=== PATIENT | female | born 1965 | race Caucasian/White ===

== ENCOUNTER 2019-08-25 07:34 | Outpatient (CLI) | payer OTHER, SELFPAY ==
--- NOTE | ~2019-08-25 | MM_ITS ---
EXAMINATION: MM screening tom BI w delon HISTORY: Screening mammogram TECHNIQUE: Craniocaudal and mediolateral oblique 3-D tomosynthesis images were obtained and synthetic 2-D images were generated. CAD analysis was submitted and interpreted. COMPARISON: Comparison to multiple prior studies sequentially, with oldest reviewed study dated 05/31. BREAST PARENCHYMAL COMPOSITION: There are scattered areas of fibroglandular density. FINDINGS: There is no evidence of suspicious mass, calcification, or architectural distortion to sugg est malignancy in either breast. There has been no suspicious interval change. IMPRESSION: 1. No mammographic evidence of malignancy. 2. Recommend routine screening mammography in one year. BI-RADS Category 1: Negative Reviewed, dictated and finalized at location A. RPRISE APPLICATION ADMINISTRATOR
== END 2019-08-25 07:35 | disposition home or self-care (01) ==
LOC: ANHIMG 07:37
PROVIDERS: PCP Family Medicine; Visit Provider Obstetrics & Gynecology
DX: Z12.31 Encounter for screening mammogram for malignant neoplasm of breast (principal)
CPT/HCPCS: 77063; 77067

== ENCOUNTER 2020-09-01 17:42 | Outpatient (CLI) | payer OTHER, SELFPAY ==
--- NOTE | ~2020-09-01 | MM_ITS ---
EXAMINATION: MM screening [facility] BI w delon HISTORY: Screening TECHNIQUE: Craniocaudal and mediolateral oblique 3-D tomosynthesis images were obtained and synthetic 2-D images were generated. CAD analysis was submitted and interpreted. COMPARISON: Comparison to multiple prior studies sequentially, with oldest reviewed study dated 05/31. BREAST PARENCHYMAL COMPOSITION: There are scattered areas of fibroglandular density. FINDINGS: There is no evidence of suspicious mass, calcification, or architectural distortion to sugg est malignancy in either breast. There has been no suspicious interval change. IMPRESSION: 1. No mammographic evidence of malignancy. 2. Recommend routine screening mammography in one year. BI-RADS Category 1: Negative Reviewed, dictated and finalized at location A. CLE SAFETY INSPECTOR
== END 2020-09-01 17:43 | disposition home or self-care (01) ==
LOC: ANHIMG 17:45
PROVIDERS: Family Provider Hospitalist; PCP Family Medicine; Visit Provider Obstetrics & Gynecology
DX: Z12.31 Encounter for screening mammogram for malignant neoplasm of breast (principal)
CPT/HCPCS: 77063; 77067

== ENCOUNTER 2020-12-24 12:18 | Emergency (ER) | payer OTHER, SELFPAY ==
--- NOTE | ~2020-12-24 | XR_ITS ---
EXAMINATION: XR chest 2V 12/24/2020 12:58 INDICATION: Generalized chest burning. Hypertension. PROCEDURE: PA and lateral views of the chest COMPARISON: 02/06/2007 FINDINGS: No focal pneumonia. Left basilar atelectasis. The cardiomediastinal silhouette is within no rmal limits. There are no pleural effusions. There is no pneumothorax suspected. There is a calcif ied granuloma of the left midlung zone. IMPRESSION: 1: NO ACUTE CARDIOPULMONARY DISEASE. Reviewed, dictated and finalized at location A.
[2020-12-24 12:40] VITALS: BP 155/80; PULSE 81; RESP 18; TEMP 37.7; O2SAT 100
--- NOTE | 2020-12-24 12:40 | ECG_ITS ---
Measurements Intervals [place] Rate: 75 P: 43 OK: 154 QRS: 64 QRSD: 78 T: 28 QT: 363 QTc: 406 Interpretive Statements SINUS RHYTHM LOW QRS VOLTAGE IN PRECORDIAL LEADS BORDERLINE ST-T WAVE ABNORMALITY- ANT/INF LEADS BASELINE ARTIFACT- I, II, III, V4 BORDERLINE ECG Electronically Signed On 12-24-2020 19:29:28 CDT by Serafin Lucas D.O.
[2020-12-24 12:59] LABS: Basophils Absolute Auto 0.1 K/mm3 (0.0-0.1); Basophils Percent Auto 0.4 % (0.2-1.2); Eosinophils Absolute Auto 0.1 K/mm3 (0-0.3); Eosinophils Percent Auto 0.4 % (0-4.4); Hematocrit 43.5 % (37.0-47.0); Hemoglobin 13.8 g/dL (12.0-15.0); Immature Granulocyte Absolute 0.04 K/mm3 (0.00-0.031); Immature Granulocyte Percent A 0.3 % (0-0.5); Lymphocytes Absolute Auto 1.07 K/mm3 (0.9-3.2); Lymphocytes Percent Auto 8.1 % (18.3-44.2); Mean Corpuscular HGB Conc 31.7 g/dl (32-36); Mean Corpuscular Hemoglobin 27.7 pg (26-34); Mean Corpuscular Volume 87.2 fl (80-100); Mean Platelet Volume 11.1 fl (7.4-10.4); Monocytes Percent Auto 7.7 % (2.6-8.5); Neutrophils Absolute Auto 10.9 K/mm3 (1.3-6.7); Neutrophils Percent Auto 83.1 % (45.5-73.1); Platelet Count Result 293 k/mm3 (150-375); Red Blood Count 4.99 M/mm3 (4.2-5.4); Red Cell Distribution Width 14.5 % (11.5-14.5); White Blood Count 13.2 K/mm3 (4.5-10.0)
[2020-12-24 13:09] LABS: Anion Gap 7 mmol/L (8-16); Blood Urea Nitrogen 18 mg/dL (7-17); Calcium 10.1 mg/dL (8.4-10.2); Carbon Dioxide 33 mmol/L (22-30); Chloride 102 mmol/L (98-107); Estimated CRCL calculation 87 ml/min; Estimated Glomerular Filt Rate > 60; Glucose 118 mg/dL (65-105); Potassium 4.1 mmol/L (3.4-5.0); Sodium 142 mmol/L (137-145)
[2020-12-24 14:00] VITALS: BP 130/70; PULSE 67; RESP 18; O2SAT 100
--- NOTE | 2020-12-24 14:37 | ED.SOB ---
HPI - SOB/Dyspnea General Chief Complaint: Shortness of Breath/Dyspnea Stated Complaint: sob, sore throat, abnormal ekg Time Seen by Provider: 12/24/20 14:22 Source: patient Mode of arrival: ambulatory Limitations: no limitations History of Present Illness HPI Narrative: This is a 55-year-old female that presents to the emergency department for throat discomfort since this morning. Reports she woke up at 5 AM and felt like her throat was burning. Reports it is somewhat improved since onset, but has been constant in nature. Does report she drinks margaritas last night and has history of reflux. Also reports some shortness of breath due to the burning in her throat. Denies fever, chest pain, or edema. Related Data Allergies Allergy/AdvReac Type Severity Reaction Status Date / Time No Known Allergies Allergy Unknown Verified 11/25/15 10:26 Review of Systems Review of Systems: Narrative: CONSTITUTIONAL: Denies fever ENT: Reports sore throat CARDIOVASCULAR: Denies chest pain, or edema. RESPIRATORY: Reports dyspnea. Denies cough GASTROINTESTINAL: Reports nausea. Denies nausea All systems reviewed & are unremarkable except as noted in HPI and below PMFSH Past Medical History Medical History (Updated 12/24/20 @ 18:16 by Angela Blanchard PA-C) History of gastroesophageal reflux (GERD) History of hypertension Surgical History Surgical History (Updated 12/24/20 @ 14:39 by Angela Blanchard PA-C) History of cholecystectomy History of tonsillectomy Exam Narrative: Exam Narrative: GENERAL: Well-appearing, obese, and in no acute distress. HEAD: Normocephalic, atraumatic. EYES: EOMI. ENT: Nares clear, no rhinorrhea or epistaxis. Mucous membranes moist. Oropharynx without tonsillar hypertrophy exudate or other lesions. Bilateral TMs pearly mehta non-bulging NECK: Supple. No adenopathy or masses. No carotid bruits or JVD CHEST: Clear to auscultation. No respiratory distress. No wheezes rales or rhonchi HEART: Regular rate and rhythm. No murmur heard. Normal peripheral pulses. ABDOMEN: Soft, nontender, nondistended, normal active bowel sounds. EXTREMITIES: Normal range of motion. No edema. SKIN: Warm, dry, no rash. NEURO: No focal deficits. Alert and oriented x3. PSYCH: Normal mood and affect Course Vital Signs Vital signs: Vital Signs Temperature 99.8 F H 12/24/20 12:40 Pulse Rate 81 12/24/20 12:40 Respiratory Rate 18 12/24/20 12:40 Blood Pressure 155/80 H 12/24/20 12:40 Pulse Oximetry 100 12/24/20 12:40 Temperature 98.0 F 12/24/20 17:49 Pulse Rate 65 12/24/20 17:39 Respiratory Rate 18 12/24/20 17:39 Blood Pressure 133/77 12/24/20 17:39 Pulse Oximetry 100 12/24/20 17:39 MDM - SOB/Dyspnea MDM Narrative Medical decision making narrative: Patient presents to the emergency department for burning pain in her throat noted since this morning. Was also reporting some shortness of breath that had resolved. She is afebrile and nontoxic-appearing. Her vitals are stable. CBC does show leukocytosis to 13.2. Metabolic panel without concerning findings. EKG does show some T wave inversions in V3 and V4. Her baseline and 3-hour troponin are negative. Patient does report she has had a stress test in the last 5 years that she reports was negative. She reports improvement in her pain with Protonix. Chest x-ray without acute findings. Patient instructed to continue her omeprazole and avoid NSAIDs. Spoke with her primary about work-up will follow-up in clinic. Patient was offered admission for further work-up, would like to go home with further outpatient follow-up. She is stable and felt appropriate for further outpatient evaluation. She was given warnings to return to the ER Lab Data Attestation: I reviewed the patient's lab results. Result diagrams: 12/24/20 12:53 12/24/20 12:53 Labs: Lab Results 12/24/20 12/24/20 12/24/20 Range/Units 12:53 12:53 12:53 W
[2020-12-24] MEDS: FAMOTIDINE 20 MG/2 ML VIAL IV PUSH (14:52)
[2020-12-24] MEDS: ONDANSETRON INJ 4 MG/2 ML VIAL IV PUSH (14:55)
[2020-12-24] MEDS: SODIUM CHLORIDE 0.9% IV 500 ML 999 ML IV CONT (14:57)
[2020-12-24 15:01] LABS: Troponin I < 0.012 ng/mL (0.000-0.034)
[2020-12-24] MEDS: PANTOPRAZOLE SODIUM IV 40 MG VIAL IV PUSH (16:30)
[2020-12-24 16:48] LABS: Troponin I < 0.012 ng/mL (0.000-0.034)
[2020-12-24 17:39] VITALS: BP 133/77; PULSE 65; RESP 18; O2SAT 100
[2020-12-24 17:49] VITALS: TEMP 36.7
== END 2020-12-24 18:44 | disposition home or self-care (01) ==
PROVIDERS: Physician Assistant; Emergency Provider Emergency Medicine; PCP Family Medicine
DX: K21.9 Gastro-esophageal reflux disease without esophagitis (principal); I10 Essential (primary) hypertension
CPT/HCPCS: 36415; 71046; 80048; 84484; 85025; 87081; 87880; 93005; 96361; 96374; 96375; 99284; C9113; J0131; J2405; J7030; J7040

== ENCOUNTER 2021-01-05 00:54 | Day surgery (SDC) | payer OTHER, SELFPAY ==
[2020-12-30 14:54] VITALS: BMI 41.4
[2021-01-05 06:47] VITALS: BP 132/72; PULSE 69; RESP 18; TEMP 35.9; O2SAT 98
[2021-01-05] MEDS: LACTATED RINGERS 1,000 ML 150 ML IV CONT (06:49)
--- NOTE | 2021-01-05 07:25 | WPDANESEPPF ---
Anes - Initial Pre Proc Eval Procedure: Operation Date: 01/05/21 08:00 Proposed Procedures p Esophagogastroduodenoscopy - Mart Mayes MD Date/Time: 01/05/21 07:25 Surgeon: Mart Mayes MD Pre Op Diagnosis: atypical chest pain Patient Data Age: 55 Gender: F Height: 1.65 m Weight: 114.3 kg Last Vital Signs Temp 35.9 C L 01/05/21 06:47 Pulse 69 01/05/21 06:47 Resp 18 01/05/21 06:47 BP 132/72 01/05/21 06:47 Pulse Ox 98 01/05/21 06:47 Allergies Allergy/AdvReac Type Severity Reaction Status Date / Time No Known Allergies Allergy Unknown Verified 01/05/21 06:45 Home Medications Medication Instructions Recorded Confirmed Type famotidine 20 mg tablet 20 mg PO HS 12/28/20 01/05/21 History omeprazole 20 mg tablet,delayed 20 mg PO DAILY 12/28/20 01/05/21 History release triamterene 37.5 1.5 cap PO DAILY 12/28/20 01/05/21 History mg-hydrochlorothiazide 25 mg capsule Daily Multivitamin 1 tab-cap PO DAILY 12/30/20 01/05/21 History atenolol 50 mg PO BID 12/30/20 01/05/21 History ferrous sulfate [Slow Fe] 45 mg PO DAILY 12/30/20 01/05/21 History Patient hx anesthesia problems: none Family hx anesthesia problems: none PMFSH Past Medical History Medical History (Updated 01/05/21 @ 07:25 by Rex Weiss MD) History of gastroesophageal reflux (GERD) History of hypertension Morbid obesity Surgical History Surgical History History of cholecystectomy History of tonsillectomy Social History Social History Smoking status: Never smoker Alcohol intake: current Substance use: never Substance use type: does not use Living arrangements: with family Spiritual care concerns: No Anes - Eval Final PreProcedure Day of Procedure 01/05/21 07:25 Patient weight: morbidly obese Heart: regular rate and rhythm Lungs: clear to auscultation Airway: Mallampati scale class II Neurological: alert and oriented Last oral intake: >/= 8 hours ASA classification: III Emergent: no Anesthetic plan: proceed Anesthesia type and monitoring: general GIVS and standard monitoring Informed Consent: The patient's anesthetic plan and its attendant risks and benefits were discussed with the patient/family/POA. Questions were solicited and answers provided to the satisfaction of the patient/family/POA.
--- NOTE | 2021-01-05 07:58 | WPDHPUPDATE1 ---
History and Physical Update Update Date/Time: 01/05/21 07:58 History and Physical has been reviewed, including an updated exam of the patient. There are NO changes in the patient's condition. Risks, benefits, and alternatives have been discussed and questions answered. Patient agrees to proceed with procedure.
[2021-01-05] MEDS: BENZOCAINE (*SP) 60 ML SPRAY CAN (HURRICAINE) 1 SPRAY MUCOUS MEM (08:05)
[2021-01-05 08:18] VITALS: BP 111/57; PULSE 63; RESP 23; O2SAT 99
[2021-01-05 08:28] VITALS: BP 124/76; PULSE 62; RESP 20; O2SAT 97
[2021-01-05 08:38] VITALS: BP 120/72; PULSE 57; RESP 18; O2SAT 100
== END 2021-01-05 09:19 | disposition home or self-care (01) ==
PROVIDERS: PCP Family Medicine; Visit Provider Internal Medicine Gastroenterology
PROC: 0DJ08ZZ Inspection of Upper Intestinal Tract, Via Natural or Artificial Opening Endoscopic (ICD-10-PCS; CPT 43235; principal; 2021-01-05 08:00)
DX: K21.9 Gastro-esophageal reflux disease without esophagitis (principal); I10 Essential (primary) hypertension; E66.01 Morbid (severe) obesity due to excess calories; Z68.41 Body mass index [BMI] 40.0-44.9, adult
CPT/HCPCS: 43239; 87081; J2704; J7120

== ENCOUNTER 2021-06-20 08:43 | Outpatient (CLI) | payer OTHER, SELFPAY ==
[2021-06-20 08:53] VITALS: PULSE 68; O2SAT 97
[2021-06-20 09:00] VITALS: PULSE 96; O2SAT 95
--- NOTE | 2021-06-20 09:05 | HOMEO2EVAL ---
Evaluation was performed at [facility] Home Oxygen Evaluation RC: Home Oxygen (O2) Evaluation Start: 06/20/21 09:01 Freq: Status: Active Protocol: RPE Activity Type Activity Date Activity User E-Sign Co-Sign Detail Recorded Client Recorded Date Recorded By Document 06/20/21 08:53 SJKayce [id number] 06/20/21 09:04 SJB Document 06/20/21 09:00 SJB [id number] 06/20/21 09:04 SJB 06/20/21 06/20/21 08:53 09:00 Home O2 Evaluation Test Phase Resting Exercise Oxygen Delivery Room Air Room Air Pulse Oximetry (90-100 %) 97 95 Pulse Rate (60-100 beats/min) 68 Activity Tolerance Excellent Rating of Perceived Dyspnea (PD) +1 Mild, Noticeable to the Participant but Not to an Observer Rate of Perceived Exertion (PE) 11 Fairly light Ambulation Distance (feet) 1,200 Home Oxygen Evaluation Comments WILL BEGIN WALK PT WALKED NOW. APPROX 1200 FT UNASSISTED ON R /A. TOLERATED VERY WELL. SP02S REMAINED 94% AND ABOVE, TALKING THROUGH THE TEST. Treatment Charges O2 Evaluation - Outpatient
--- NOTE | 2021-06-20 09:18 | HOMEO2EVAL ---
Evaluation was performed at [facility] [place] Home Oxygen Evaluation RC: Home Oxygen (O2) Evaluation Start: 06/20/21 09:01 Freq: Status: Active Protocol: RPE Activity Type Activity Date Activity User E-Sign Co-Sign Detail Recorded Client Recorded Date Recorded By Document 06/20/21 08:53 SJKayce [id number] 06/20/21 09:04 SJB Document 06/20/21 09:00 SJB [id number] 06/20/21 09:04 SJB 06/20/21 06/20/21 08:53 09:00 Home O2 Evaluation Test Phase Resting Exercise Oxygen Delivery Room Air Room Air Pulse Oximetry (90-100 %) 97 95 Pulse Rate (60-100 beats/min) 68 96 Activity Tolerance Excellent Rating of Perceived Dyspnea (PD) +1 Mild, Noticeable to the Participant but Not to an Observer Rate of Perceived Exertion (PE) 11 Fairly light Ambulation Distance (feet) 1,200 Home Oxygen Evaluation Comments WILL BEGIN WALK PT WALKED NOW. APPROX 1200 FT UNASSISTED ON R /A. TOLERATED VERY WELL. SP02S REMAINED 94% AND ABOVE, TALKING THROUGH THE TEST. Treatment Charges O2 Evaluation - Outpatient
--- NOTE | 2021-06-22 11:00 | WPDPFTINT ---
PFT Procedure Performed PFT Procedure Performed Spirometry with Pre/Post Bronchodilator Plethysmography (Lung Vol) Diffusing Cap (DLCO) Flow Vol Loop PFT Interpretation DOS: 06/20/2021 REQUESTING: Dr Powell REASON FOR TESTING: Shortness of breath PULMONARY FUNCTION TESTS Results are reliable and reproducible. Spirometry: FEV1 before bronchodilator is 105% predicted, 2.65 L. FVC is 107%. THe FEV1/FVC ratio is 96%, normal. There is no improvement after bronchodilator. Lung volumes: Total lung capacity is 94% predicted, normal. Residual volume is 78% normal. RV/TLC is not elevated. There is no hyperinflation or air trapping. Airway resistance 125% upper limit of normal. Diffusion: DLCO 69% predicted, mildly decreased. Flow volume loop: Normal IMPRESSION: This pulmonary function study shows normal spirometry, normal lung volumes with minimal decrease in diffusion which is a nonspecific finding. Oumou Powell MD
--- NOTE | 2021-06-22 11:05 | WPDSIXMINUTE ---
Six Minute Walk Procedure Procedure Performed Pulmonary Stress Test (6 min walk) Six Minute Walk Six Minute Walk: DOS: 06/20/2021 REQUESTING: Dr Powell REASON FOR TESTING: Shortness of breath SIX MINUTE WALK This study was conducted per ATS guidelines. Initial saturation was 97% and the pulse was 68. The patient walked per protocol while breathing room air, completed a total of 1200 ft/304 m without requirement for supplemental oxygen. The saturation at the end of the test was 94%. She had mild shortness of breath. IMPRESSION: This is a normal 6 minute walk study without need for supplemental oxygen. Distance walked is normal for age.
== END 2021-06-20 08:44 | disposition home or self-care (01) ==
LOC: CHSCARD 08:44
PROVIDERS: PCP Family Medicine; Visit Provider Internal Medicine Critical Care Medicine
DX: R06.02 Shortness of breath (principal)
CPT/HCPCS: 94060; 94618; 94726; 94729

== ENCOUNTER 2021-09-26 17:44 | Outpatient (CLI) | payer OTHER, SELFPAY ==
--- NOTE | ~2021-09-26 | MM_ITS ---
EXAMINATION: MM screening [facility] BI w delon HISTORY: Screening mammogram TECHNIQUE: Craniocaudal and mediolateral oblique 3-D tomosynthesis images were obtained and synthetic 2-D images were generated. CAD analysis was submitted and interpreted. COMPARISON: 09/01/2020, 08/25/2019, 08/19/2018, 07/30/2018 BREAST PARENCHYMAL COMPOSITION: There are scattered areas of fibroglandular density. FINDINGS: A stable mass in the upper outer quadrant of the right breast is considered benign given th e lack of interval change. There is no suspicious mass, calcification, or architectural distortion to suggest malignancy in either breast. There has been no suspicious interval change. IMPRESSION: 1. No mammographic evidence of malignancy. 2. Recommend routine screening mammography in one year. BI-RADS Category 2: Benign finding(s). Reviewed, dictated and finalized at location A.
== END 2021-09-26 17:45 | disposition home or self-care (01) ==
LOC: ANHIMG 17:45
PROVIDERS: PCP Family Medicine; Visit Provider Obstetrics & Gynecology
DX: Z12.31 Encounter for screening mammogram for malignant neoplasm of breast (principal)
CPT/HCPCS: 77063; 77067

== ENCOUNTER 2023-03-08 14:19 | Outpatient (CLI) | payer OTHER, SELFPAY ==
--- NOTE | ~2023-03-08 | MM_ITS ---
CORRECTED REPORT ordering doctor corrected [facility] 03/19/23 This report was recreated on 03/19/23. Original report was EXAMINATION: MM screening tom BI w delon HISTORY: Screening mammogram TECHNIQUE: Craniocaudal and mediolateral oblique 3-D tomosynthesis images were obtained and synthetic 2-D images were generated. CAD analysis was submitted and interpreted. COMPARISON: 09/26/2021, 08/2020 bilateral screening mammogram examinations BREAST PARENCHYMAL COMPOSITION: The breasts are almost entirely fatty. FINDINGS: Stable benign-appearing intramammary lymph node in the upper outer right breast. Smaller stable benign appearing probable intramammary lymph node in the upper outer left breast. There is no evidence of suspicious mass, calcification, or architectural distortion to suggest malignancy in either breast. There has been no suspicious interval change. IMPRESSION: 1. No mammographic evidence of malignancy. 2. Recommend routine screening mammography in one year. BI-RADS Category 2: Benign finding(s). Reviewed, dictated and finalized at location A. MTDD
== END 2023-03-08 14:20 | disposition home or self-care (01) ==
PROVIDERS: PCP Family Medicine; Visit Provider Obstetrics & Gynecology
DX: Z12.31 Encounter for screening mammogram for malignant neoplasm of breast (principal)
CPT/HCPCS: 77063; 77067

== ENCOUNTER 2023-06-10 15:25 | Outpatient (CLI) | payer OTHER, SELFPAY ==
--- NOTE | ~2023-06-10 | DEXA_ITS ---
Bone Density Report Name: DAFNE COSME Age: 57 Sex: Female Ethnicity: White Date of : 1965 Indication: postmenopausal; screening for osteoporosis; Referring Provider: BAKARI YO Study: Bone densitometry was performed. Exam Date: June 10, 2023 Accession number: [id number] Bone Density: Region BMD T-score Z-score Classification AP Spine(L2, L3, L4) 1.071 -0.1 1.2 Normal Femoral Neck (Left) 0.849 0.0 1.2 Normal Total Hip (Left) 1.142 1.6 2.5 Normal Femoral Neck (Right) 0.862 0.1 1.3 Normal Total Hip (Right) 1.066 1.0 1.8 Normal Femoral Neck Mean 0.856 0.1 1.2 Normal Total Hip Mean 1.104 1.3 2.1 Normal World Health Organization criteria for BMD impression classify patients as: Normal (T-score at or above -1.0), Osteopenia (T-score between -1.0 and -2.5), or Osteoporosis (T-score at or below -2.5). 10-year Fracture Risk: FRAX not reported because: All T-scores for Spine Total, Hip Total, Femoral Neck at or above -1.0 Clinical Information Provided by Patient: Patient maximum height was 65 Menopause Age: 48 No regular weight bearing exercise Drinks caffeinated beverages Onset of menses at age 12 Number of children 1 Impression: The patient has normal bone mass. Discussion: BONE DENSITY IS ABOVE THE MINIMUM DESIRABLE LEVEL AT ALL SKELETAL SITES TESTED. This patient?s bone mineral density is above the minimum desirable level (T-score -1.0 or better) at all sites measured. The patient should follow a healthful lifestyle (good nutrition with adequate calcium and vitamin D, and appropriate weight-bearing exercise). Follow-Up: Consider repeating this study in 5 years or sooner if there is some new clinical indication. Reported by: Dr. Sherman Hernández on 06/10/2023 3:46:00 PM. Reviewed, dictated and finalized at location A.
== END 2023-06-10 15:26 | disposition home or self-care (01) ==
LOC: CHSIMG 15:26
PROVIDERS: PCP Family Medicine; Visit Provider Obstetrics & Gynecology
DX: Z78.0 Asymptomatic menopausal state (principal)
CPT/HCPCS: 77080

== ENCOUNTER 2024-03-26 16:44 | Outpatient (CLI) | payer OTHER, SELFPAY ==
--- NOTE | ~2024-03-26 | MM_ITS ---
EXAMINATION: MM screening [facility] BI w delon HISTORY: Screening TECHNIQUE: Craniocaudal and mediolateral oblique 3-D tomosynthesis images were obtained and synthetic 2-D images were generated. CAD analysis was submitted and interpreted. COMPARISON: Comparison to multiple prior studies sequentially, with oldest reviewed study dated 08/2018. BREAST PARENCHYMAL COMPOSITION: Not Dense: The breasts are almost entirely fatty. FINDINGS: There is no evidence of suspicious mass, calcification, or architectural distortion to sugg est malignancy in either breast. There has been no suspicious interval change. IMPRESSION: 1. No mammographic evidence of malignancy. 2. Recommend routine screening mammography in one year. BI-RADS Category 1: Negative Reviewed, dictated and finalized at location B.
== END 2024-03-26 16:45 | disposition home or self-care (01) ==
LOC: ANHIMG 16:47
PROVIDERS: PCP Family Medicine; Visit Provider Obstetrics & Gynecology
DX: Z12.31 Encounter for screening mammogram for malignant neoplasm of breast (principal)
CPT/HCPCS: 77063; 77067

== ENCOUNTER 2024-10-19 13:08 | Outpatient (CLI) | payer OTHER, SELFPAY ==
--- NOTE | ~2024-10-19 | XR_ITS ---
Clinical Indication: Cough PA and lateral views of the chest: Comparison: 12/24/2020 Findings: Stable calcified left upper lobe granuloma. The lungs are otherwise clear, without evidence of focal consolidation or pleural effusion. Cardiomediastinal silhouette is within normal limits. B ones and soft tissues are unremarkable. Impression: No acute abnormality. Reviewed, dictated and finalized at location . Impression: No acute abnormality.
--- OUTSIDE RECORDS SUMMARY | 2024-10-19 14:45 | XMS_ITS | Encounter Summary ---
Author Organization [facility] Health Address [address] [place] [address] Care Team Providers Care Competitive Shopper Name Role Phone Unavailable Primary Care Provider Unavailabl e Encounter Details Date Type Department Care Team (Late st Contact Info) Description 09/04/2022 Lab Requisition [facility] Care DermPath Lab [address] [place] [id number] Juan Antonio Álvarez MD [address] [place] [place] [id number] Social History Tobacco Use Types Packs/Day Years Used Date Smoking Tobacco: Never Assessed Comments Unknown Sex and Gender Information Value Date Recorded Sex Assigned at Not on file Legal Sex Female 7:46 PM EL TEACHER Gender Identity Not on file Sexual Orientation Not on file documented as of this encounter Plan of Treatment Not on file documented as of this encounter Procedures Procedure Name Priority Date/Time Associated Diagnosis Comments DERMATOPATHOLOGY Routine 08/31/2022 3:33 AM EL TEACHER documented in this encounter Results * DERMATOPATHOLOGY (08/31/2022 3:33 AM EL TEACHER) Case Report Dermatopathology Report Case: [id number] Authorizing Provider: Juan Antonio Álvarez MD Collected: 08/31/2022 03:33 AM Ordering Location: [facility] Care DermPath Lab Received: 09/04/2022 06:04 AM Pathologist: Josefina Harris MD Specimens: A) - Skin, left NLF B) - Skin, left infra nasal 3 1:02 PM EL TEACHER DERMATOPATHOLOGY LABORATORY Final Diagnosis Specimen A. SKIN, left NLF: ANGIOFIBROMA (FIBROUS PAPULE) (D21.0) (see microscopic description) Specimen B. SKIN, left infra nasal: INTRADERMAL MELANOCYTIC NEVUS (D22.39) 3 1:02 PM EL TEACHER DERMATOPATHOLOGY LABORATORY Clinical History A: FP vs Keo hyperplasia Path#[id number] B: Nevus r/o Atypia Path#[id number] 3 1:02 PM EL TEACHER DERMATOPATHOLOGY LABORATORY Gross Description Specimen A: Received is one formalin filled container labeled with the patient's name and designated left NLF. The specimen consists of a shave biopsy measuring 2x2x1 mm. Jar 0. Specimen B: Received is one formalin filled container labeled with the patient's name and designated left infra nasal. The specimen consists of a shave biopsy measuring 4x4x1 mm. Jar 0. 3 1:02 PM EL TEACHER DERMATOPATHOLOGY LABORATORY Microscopic Description Specimen A. SKIN, left NLF: This dome-shaped lesion contains dilated blood vessels, coarse collagen bundles, and stellate fibroblasts. Additional deeper sections were obtained and reviewed. Specimen B. SKIN, left infra nasal: There are nests of cytologically bland melanocytes within the dermis that mature with depth. 3 1:02 PM EL TEACHER DERMATOPATHOLOGY LABORATORY Disclaimer An external and internal positive and negative controls are appropriate for the histochemical, immunohistochemical and immunofluorescence stain(s) in this case (if any), except where stated explicitly. The performance characteristics of the stain(s) cited in this report were developed and its performance characteristic determined by the Dermatopathology Laboratory at [facility], directed by Dr. Kenny Gordon. These tests need not be, and therefore are not, approved by the [place] Food and Drug Administration. The tests are used for clinical purposes. Billing Codes Specimen Charges Stain Charges 67464 [id number] 1 1 3 1:02 PM EL TEACHER DERMATOPATHOLOGY LABORATORY Embedded Images 3 1:02 PM EL TEACHER DERMATOPATHOLOGY LABORATORY Pathology/Cytology TISSUE SPECIMEN FROM SKIN / Unknown 08/31/2022 3:33 AM EL TEACHER 09/04/2022 6:04 AM EL TEACHER Miscellaneous samples (specimen) TISSUE SPECIMEN FROM SKIN / Unknown 08/31/2022 3:33 AM EL TEACHER 09/04/2022 6:04 AM EL TEACHER us Juan Antonio Álvarez MD LAB - PATHOLOGY/CYTOLOGY ORDER JUVENAL Final Result DERMATOPATHOLOGY LABORATORY [facility] - Department of Dermatology [facility] [address] [place] [address], [address] [phone] documented in this encounter Visit Diagnoses Not on filedocumented in this encounter
--- OUTSIDE RECORDS SUMMARY | 2024-10-19 14:45 | XMS_ITS | Clinical Summary ---
Author Organization [facility] [place] [address] [address] Address [address] [place] [address] Care Team Providers Care Cellular Equipment Repairer Name Role Phone Sonny Moctezuma MD Primary Care Provider [phone] Allergies No known active allergies Medications atenolol (TENORMIN) 50 mg tablet Take 50 mg by mouth 2 (two) times a day. 02/05/2018 Active TRIAMTERENE-HYDR OCHLOROTHIAZIDE 37.5-25 mg per tablet Take 1.5 tablet/caps ule by mouth daily. 11/10/2017 Active meloxicam (MOBIC) 15 mg tablet 01/04/2018 Active omeprazole (PriLOSEC) 10 mg capsule Take 10 mg by mouth daily. Active famotidine (PEPCID) 20 mg tablet Take 20 mg by mouth 2 (two) times a day Active calcium acetate,phosphat bind, (PHOSLO) 667 mg tablet Take 1,334 mg by mouth 3 (three) times a day with meals Active calcium carbonate-vitami n D3 1500 mg (600 mg elemental) -200 units per tablet Take 1 tablet by mouth daily Active iron 18 mg tablet Take by mouth Active Active Problems Problem Noted Date Diagnosed Date Morbid obesity with BMI of 40.0-44.9, adult 03/2018 Exertional shortness of breath 02/06/2018 Surgical History Surgery Date Site/Laterality Comments APPENDECTOMY GALLBLADDER SURGERY TONSILLECTOMY Medical History Medical History Date Comments Hypertension Obesity Diverticulitis Sleep apnea HL (hearing loss) Family History Medical History Relation Name Comments COPD Father Heart disease Father COPD Mother Cancer Mother Relation Name Status Comments Father Mother Social History Tobacco Use Types Packs/Day Years Used Date Smoking Tobacco: Never Smokeless Tobacco: Never Alcohol Use Standard Drinks/Week Comments Yes 2 (1 standard drink = 0.6 oz pur e alcohol) Personal Safety Answer Date Recorded Getting School Help Needed Not on file 09/14 Comments Unknown Sex and Gender Information Value Date Recorded Sex Assigned at Not on file Legal Sex Female 1:57 AM 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 H[facility]PPO Address: [address] [address] [facility] H[facility]/PPO Address: [address] [address] Care Teams Cellular Equipment Repairer Relationship Specialty Start Date End Date Sonny Moctezuma MD [address] [place] [id number] PCP - General Family Medicine 02/05/18
--- OUTSIDE RECORDS SUMMARY | 2024-10-19 14:45 | XMS_ITS | Clinical Summary ---
Author Organization [facility] Address [address] [place] [address] Care Team Providers Care Gas Plant Technician Name Role Phone Sonny Moctezuma MD Primary Care Provider [phone] Allergies No known active allergies Medications HYDROcodone-karena taminophen (NORCO) 5-325 MG tabletIndicatio ns:Acute Pain < 3 Day Supply Take 1 tablet by mouth every 6 (six) hours as needed. Indications: Acute Pain < 3 Day Supply 12 tablet 3 Active celecoxib (CELEBREX) 200 MG capsule Take 1 capsule (200 mg total) by mouth 2 (two) times daily. 3 Active atenolol (TENORMIN) 50 MG tablet Take 1 tablet (50 mg total) by mouth 2 (two) times daily. 3 Active triamterene-hyd roCHLOROthiazid e (MAXZIDE-25) 37.5-25 MG tablet TAKE 1 & 1/2 TABLETS EVERY DAY FOR 90 DAYS 3 Active omeprazole (PRILOSEC) 10 MG capsule Take 1 capsule (10 mg total) by mouth daily. Active famotidine (PEPCID) 20 MG tablet Take 1 tablet (20 mg total) by mouth 2 (two) times daily. Active Multiple Vitamins-Minera ls (CENTRUM SILVER 50+WOMEN) Tab 1 Active Cholecalciferol (D3 1999) 50 MCG (1999) Cap 2 Active aspirin EC (ECOTRIN) 81 MG tablet 3 Active JARDIANCE 25 MG tablet 3 Active fluconazole (DIFLUCAN) 150 MG tablet TAKE 1 TABLET BY MOUTH ONCE FOR 1 DOSE - MAY REPEAT X 1 IN WEEK IF NEEDED A SINGLE DOSE 3 Active triamcinolone (KENALOG) 0.1 % cream APPLY EXTERNALLY TWICE A DAY SCATTERED TO BODY 3 Active acetaminophen (TYLENOL) 500 MG tablet 2 Active Clobetasol Prop-Niacinamid e 0.05-4 % Ointment 1 Active Cyanocobalamin (B-12) 1000 MCG Cap 4 Active valACYclovir (VALTREX) 1 g tablet TAKE 1 TABLET BY MOUTH EVERY 12 HOURS NEEDED FOR COLD SORES 4 Active Family History Medical History Relation Comments Arthritis Father Diabetes Father Hypertension Father Arthritis Mother 07-08-19 COPD Mother from COPD Diabetes Mother Hypertension Mother Relation Status Comments Father Mother Social History Tobacco Use Types Packs/Day Years Used Date Smoking Tobacco: Never Passive Smoke Exposure: Never Smokeless Tobacco: Never Tobacco Cessation:Counseling Given: No Alcohol Use Standard Drinks/Week Comments Not Currently 0 (1 standard drink = 0.6 oz pur e alcohol) Occasionally PHQ-2 Answer Date Recorded Patient Health Questionnaire-2 Score 0 10/18/2023 Comments Unknown Sex and Gender Information Value Date Recorded Sex Assigned at Female 09/06/2023 8:03 AM WHITE HAT HACKER Legal Sex Female 11:47 PM CDT Gender Identity Female 09/06/2023 8:03 AM WHITE HAT HACKER Sexual Orientation Straight 09/06/2023 8: 03 AM WHITE HAT HACKER Last Filed Vital Signs Vital Sign Reading Time Taken Comments Blood Pressure 166/88 10/18/2023 11:20 AM CDT Pulse 71 10/18/2023 11:20 AM CDT Temperature 37.1 C (98.7 F) 10/18/2023 11:20 AM CDT Respiratory Rate 16 12/25/2022 11:5 1 PM CDT Oxygen Saturation 95% 10/18/2023 11: 20 AM CDT Inhaled Oxygen Concentration - - Weight 116.5 kg (256 lb 12.8 oz) 2023 11:20 AM CDT Height 165.1 cm (5' 5 ) 10/18/2023 11:2 0 AM CDT Body Mass Index 42.73 10/18/2023 11:20 AM CDT Plan of Treatment Health Maintenance Due Date Last Done Comments Cervical Cancer Screening Pa p Smear (Age 30 to 64) Every 3 Years 1965 Colorectal Cancer Screening Colonoscopy (10 Years) 1965 Annual Physical 1968 Hepatitis C 10/10/1983 DTaP, Tdap and Td Vaccines ( 1 - Tdap) 1984 Hepatitis B Vaccines (1 of 3 - 19+ 3-dose series) 1984 Cervical Cancer Screening Pa p with HPV Testing (Age 30 to 64) Every 5 Years 10/10/1995 Cervical Cancer Screening wi th HPV 10/10/1995 Mammogram Screening 2005 Pneumococcal Vaccine: 50+ Years (1 of 1 - PCV) 10/10/2015 Zoster Vaccines (1 of 2) 10/10/2015 COVID-19 Vaccine (4 - 2023-2 5 season) 2024 06/17/2021, 10/15/2020, 09/24/2020 PHQ-2 (Physician [place]) 07/01/2024 10/18/2023 Meningococcal B Vaccine Aged Out No l onger eligible based on patient's age to complete this topic Meningococcal Vaccine Aged Out No efraín deisy eligible based on patient's age to complete this topic RSV Immunizations Under 20 Months Aged Out No longer eligible b ased on patient's age to complete this topic Care Teams Gas Plant Technician Relationship Specialty Start Date End Date Sonny Moctezuma MD [address] [place] [id number] PCP - General FAMILY PRACTICE 12/25/22
--- OUTSIDE RECORDS SUMMARY | 2024-10-19 14:45 | XMS_ITS | Referral Summary ---
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
--- OUTSIDE RECORDS SUMMARY | 2024-10-19 14:45 | XMS_ITS | Clinical Summary ---
Author Organization [facility] Address [address] [place] [address] Care Team Providers Care Resolution Rep Name Role Phone Unavailable Primary Care Provider Unavailabl e Source Comments [facility],non-owned Affiliates and Associated Physician Practices is amultiple site organization consisting of ambulatory clinics and hospital sitesin [place], [place] and [place]. This disclosure is being madepursuant to the Care Everywhere program and may not contain all information available regarding this patient. Last updated 18.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 Gender Identity Not on file Sexual Orientation Not on file Plan of Treatment Health Maintenance Due Date Last Done Comments COLOGUARD (AGES 45-75) - COL ON CA SCREENING 1965 COLON MONITORING 1965 COLONOSCOPY - COLON CA SCREENING 1965 CT COLONOGRAPHY - COLON CA SCREENING 1965 Colorectal Cancer Screening 1965 FIT - COLON CA SCREENING 1965 FLEX SIG - COLON CA SCREENING 1965 LIPID TESTING 1965 MAMMOGRAM 1965 PAP SMEAR 1965 HIV SCREENING 1980 HEPATITIS C SCREENING 10/05/1983 DTAP/TDAP/TD VACCINES (1 - Tdap) 1984 HEPATITIS B VACCINE (1 of 3 - 19+ 3-dose series) 1984 PNEUMOCOCCAL VACCINE 50+ (1 of 1 - PCV) 10/10/2015 ZOSTER VACCINE (1 of 2) 10/10/2015 COVID-19 VACCINE (2 - 2023-2 5 season) 2024 06/17/2021 DEPRESSION SCREENING 07/01/2024 INFLUENZA VACCINE (Season Ended) 2025 HIB VACCINE Aged Out No longer eligi ble based on patient's age to complete this topic HPV VACCINE Aged Out No longer eligi ble based on patient's age to complete this topic MENINGOCOCCAL (Group B) VACC INE SHARED DECISION-MAKING Aged Out No longer eligibl e based on patient's age to complete this topic MENINGOCOCCAL GROUPS A/C/Y/W VACCINE Aged Out No longer eligible b ased on patient's age to complete this topic
--- OUTSIDE RECORDS SUMMARY | 2024-10-19 14:45 | XMS_ITS | Encounter Summary ---
Author Organization [facility] Health Address [address] [facility] [place] [address] Care Team Providers Care Biology Teacher Name Role Phone Unavailable Primary Care Provider Unavailabl e Encounter Details Date Type Department Care Team (Late st Contact Info) Description 06/06/2021 Lab Requisition [facility] DermPath Lab [address] [place] [id number] Juan Antonio Álvarez MD [address] [place] [address] Social History Tobacco Use Types Packs/Day Years Used Date Smoking Tobacco: Never Assessed Comments Unknown Sex and Gender Information Value Date Recorded Sex Assigned at Not on file 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 Sex Female 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 Gender Identity Not on file Sexual Orientation Not on file documented as of this encounter Plan of Treatment Not on file documented as of this encounter Procedures Procedure Name Priority Date/Time Associated Diagnosis Comments DERMATOPATHOLOGY Routine 06/02/2021 12:0 0 AM MARKETING SECRETARY documented in this encounter Results * DERMATOPATHOLOGY (06/02/2021 12:00 AM MARKETING SECRETARY) Case Report Dermatopathology Report Case: [id number] Authorizing Provider: Juan Antonio Álvarez MD Collected: 06/02/2021 12:00 AM Ordering Location: [facility] DermPath Lab Received: 06/06/2021 06:28 AM Pathologist: Josefina Harris MD Specimen: Skin, right ala 4:46 PM MARKETING SECRETARY DERMATOPATHOLOGY LABORATORY Final Diagnosis Specimen A. SKIN, right ala: COMPOUND MELANOCYTIC NEVUS (D22.39) 4:46 PM [facility] DERMATOPATHOLOGY LABORATORY Clinical History Nevus R/O atypia. Path# [id number] 4:46 PM [facility] DERMATOPATHOLOGY LABORATORY Gross Description Specimen A: Received is one formalin filled container labeled with the patient's name and designated right ala. The specimen consists of a shave biopsy measuring [id number]. Jar 0. 4:46 PM [facility] DERMATOPATHOLOGY LABORATORY Microscopic Description Specimen A. SKIN, right ala: There are nests of melanocytes at the dermal-epidermal junction and within the dermis. 4:46 PM [facility] DERMATOPATHOLOGY LABORATORY Disclaimer An external and internal positive and negative controls are appropriate for the histochemical, immunohistochemical and immunofluorescence stain(s) in this case (if any), except where stated explicitly. The performance characteristics of the stain(s) cited in this report were developed and its performance characteristic determined by the Dermatopathology Laboratory at [facility], directed by Dr. Kenny Gordon. These tests need not be, and therefore are not, approved by the [place] Food and Drug Administration. The tests are used for clinical purposes. Billing Codes Specimen Charges Stain Charges 06021 1 4:46 PM MARKETING SECRETARY DERMATOPATHOLOGY LABORATORY Embedded Images 4:46 PM [facility] DERMATOPATHOLOGY LABORATORY Pathology/Cytolog y TISSUE SPECIMEN FROM SKIN / Unknown 06/02/2021 06/06/2021 6:28 AM MARKETING SECRETARY us Juan Antonio Álvarez MD LAB - PATHOLOGY/CYTOLOGY ORDER JUVENAL Final Result DERMATOPATHOLOGY LABORATORY [facility] - Department of Dermatology [address] [place] [address], [facility] [place] [phone] documented in this encounter Visit Diagnoses Not on filedocumented in this encounter
--- OUTSIDE RECORDS SUMMARY | 2024-10-19 14:45 | XMS_ITS | Encounter Summary ---
Author Organization [facility] Address [address] [place] [address] Care Team Providers Care Cancer Center Director Name Role Phone Sonny Moctezuma MD Primary Care Provider [phone] Encounter Details Date Type Department Care Team (Late st Contact Info) Description 09/06/2023 [employer] Message Enc [facility] Orthopedic & Sports Medicine - [address] [address] Sudha, [facility] Provider Foot Pain Social History Tobacco Use Types Packs/Day Years Used Date Smoking Tobacco: Never Passive Smoke Exposure: Never Smokeless Tobacco: Never Alcohol Use Standard Drinks/Week Comments Not Currently 0 (1 standard drink = 0.6 oz pur e alcohol) Occasionally PHQ-2 Answer Date Recorded Patient Health Questionnaire-2 Score 0 01/02/2023 Comments Unknown Sex and Gender Information Value Date Recorded Sex Assigned at Female 09/06/2023 8:03 AM WEAVER TIRE CORD Legal Sex Female 11:47 PM CDT Gender Identity Female 09/06/2023 8:03 AM WEAVER TIRE CORD Sexual Orientation Straight 09/06/2023 8 :03 AM WEAVER TIRE CORD documented as of this encounter Plan of Treatment Not on file documented as of this encounter Visit Diagnoses Not on filedocumented in this encounter Care Teams Cancer Center Director Relationship Specialty Start Date End Date Sonny Moctezuma MD [address] [place] [phone] PCP - General FAMILY PRACTICE 6/27/23 documented as of this encounter
== END 2024-10-19 13:09 | disposition home or self-care (01) ==
PROVIDERS: PCP Family Medicine; Visit Provider Nurse Practitioner Family
DX: R05.9 Cough, unspecified (principal)
CPT/HCPCS: 71046

== ENCOUNTER 2024-12-21 14:47 | Outpatient (CLI) | payer OTHER, SELFPAY ==
--- NOTE | ~2024-12-21 | CT_ITS ---
CT Scan of the Chest without Contrast: Clinical Indication: Chronic cough Technique: Contiguous sections were acquired throughout the chest without intravenous contrast. Dose reduction technique was used on this scan by utilizing automated exposure control and iterative recon struction technique. The dose-length product (DLP) was 505.38 mGy-cm. Findings: There is no evidence of any significant mediastinal, hilar or axillary lymphadenopathy. Calcified lef t hilar lymph node present. There is no evidence of pleural or pericardial effusion. The lungs are clear, aside from calcified left lower lobe granuloma. Images through the upper abdomen reveal diffuse fatty infiltration of liver with probable hepatomegal y. Impression: No acute abnormality. Evidence of prior granulomatous disease. Diffuse fatty infiltration of liver. Reviewed, dictated and finalized at location . Impression: No acute abnormality. Evidence of prior granulomatous disease. Diffuse fatty infiltration of liver.
--- NOTE | 2024-12-22 11:08 | WPDPFTINT ---
PFT Procedure Performed PFT Procedure Performed Spirometry with Pre/Post Bronchodilator Plethysmography (Lung Vol) Diffusing Cap (DLCO) Flow Vol Loop PFT Interpretation This is a pulmonary function test with pre and post-bronchodilator spirometry, plethysmography and diffusing capacity. The test was performed and results interpreted in accordance with the 2019 and 2005 ATS/ERS Task Force guidelines respectively using the Global Lung Function Initiative-2012 reference equations. Patient demonstrated good effort and cooperation. Reproducibility criteria were met. The quality of the pre bronchodilator spirometry maneuver was Grade A and post bronchodilator spirometry maneuver was Grade A. Findings: Spirometry: The contour the inspiratory and expiratory flow tracing are normal. The pre bronchodilator FVC is 3.03 L, 92% predicted. The pre bronchodilator FEV1 is 2.30 L, 88% predicted. The pre bronchodilator FEV1: FVC ratio 76%. The post bronchodilator FVC is 2.95 L, representing a 3% decrease. The post bronchodilator FEV1 is 2.31 L, representing a 1% increase. The post bronchodilator FEV1: FVC ratio is 79%. Plethysmography: The total lung capacity is 4.76 L, 92% predicted. The functional residual capacity is 1.54 L, 52% predicted. The residual volume is 1.49 L, 74% predicted. Diffusing capacity: The diffusing capacity unadjusted for hemoglobin and carboxyhemoglobin is 17.9, 81% predicted. The diffusing capacity adjusted for alveolar volume is 4.24, 96% predicted. Impression: The spirometry is normal without evidence of an obstructive abnormality. There is no significant improvement after inhaling a single dose of albuterol. The total lung capacity and residual volume are normal With a decreased functional residual capacity. This is an abnormal but nonspecific lung volume pattern. The diffusing capacity is normal. There are no prior studies for comparison
== END 2024-12-21 14:48 | disposition home or self-care (01) ==
PROVIDERS: PCP Family Medicine; Visit Provider Nurse Practitioner Family
DX: R05.3 Chronic cough (principal); R06.09 Other forms of dyspnea; K76.0 Fatty (change of) liver, not elsewhere classified
CPT/HCPCS: 71250; 94060; 94726; 94729

== ENCOUNTER 2025-05-24 14:18 | Outpatient (CLI) | payer OTHER, SELFPAY ==
--- NOTE | ~2025-05-24 | MM_ITS ---
EXAMINATION: MM screening tom BI w delon HISTORY: Screening TECHNIQUE: Craniocaudal and mediolateral oblique 3-D tomosynthesis images were obtained and synthetic 2-D images were generated. CAD analysis was submitted and interpreted. COMPARISON: Comparison to multiple prior studies sequentially, with oldest reviewed study dated 08/12/2018. BREAST PARENCHYMAL COMPOSITION: Not Dense: The breasts are almost entirely fatty. FINDINGS: There is no evidence of suspicious mass, calcification, or architectural distortion to suggest malignancy in either breast. There has been no suspicious interval change. IMPRESSION: 1. No mammographic evidence of malignancy. 2. Recommend routine screening mammography in one year. BI-RADS Category 1: Negative Reviewed, dictated and finalized at location [facility]. [facility]
--- OUTSIDE RECORDS SUMMARY | 2025-05-24 16:59 | XMS_ITS | Encounter Summary ---
Author Organization [facility] Health Address [address] [facility] [place] [address] Care Team Providers Care Banquet Lead Name Role Phone Unavailable Primary Care Provider Unavailabl e Encounter Details Date Type Department Care Team (Late st Contact Info) Description 09/04/2022 Lab Requisition [facility] DermPath Lab [address] [place] [id number] Juan Antonio Álvarez MD [address] [place] [address] Social History Tobacco Use Types Packs/Day Years Used Date Smoking Tobacco: Never Assessed Comments Unknown Sex and Gender Information Value Date Recorded Sex Assigned at Not on file Legal Sex Female 7:46 PM BROOCH MAKER NOVELTY Gender Identity Not on file Sexual Orientation Not on file documented as of this encounter Plan of Treatment Not on file documented as of this encounter Procedures Procedure Name Priority Date/Time Associated Diagnosis Comments DERMATOPATHOLOGY Routine 08/31/2022 3:33 AM BROOCH MAKER NOVELTY documented in this encounter Results * DERMATOPATHOLOGY (08/31/2022 3:33 AM BROOCH MAKER NOVELTY) Case Report Dermatopathology Report Case: [id number] Authorizing Provider: Juan Antonio Álvarez MD Collected: 08/31/2022 03:33 AM Ordering Location: [facility] Care DermPath Lab Received: 09/04/2022 06:04 AM Pathologist: Josefina Harris MD Specimens: A) - Skin, left NLF B) - Skin, left infra nasal 3 1:02 PM [facility] DERMATOPATHOLOGY LABORATORY Final Diagnosis Specimen A. SKIN, left NLF: ANGIOFIBROMA (FIBROUS PAPULE) (D21.0) (see microscopic description) Specimen B. SKIN, left infra nasal: INTRADERMAL MELANOCYTIC NEVUS (D22.39) 3 1:02 PM [facility] DERMATOPATHOLOGY LABORATORY at [address] BROOCH MAKER NOVELTY Clinical History A: FP vs Keo hyperplasia Path#[id number] B: Nevus r/o Atypia Path#[id number] 3 1:02 PM [facility] DERMATOPATHOLOGY LABORATORY Gross Description Specimen A: Received [...] 4x4x1 mm. Jar 0. 3 1:02 PM [facility] DERMATOPATHOLOGY LABORATORY Microscopic Description Specimen A. SKIN, left NLF: This dome-shaped lesion contains dilated blood vessels, coarse collagen bundles, and stellate fibroblasts. Additional deeper sections were obtained and reviewed. Specimen B. SKIN, left infra nasal: There are nests of cytologically bland melanocytes within the dermis that mature with depth. 3 1:02 PM [facility] DERMATOPATHOLOGY LABORATORY Disclaimer An external and internal positive and negative controls are appropriate for the histochemical, immunohistochemical and immunofluorescence stain(s) in this case (if any), except where stated explicitly. The performance characteristics of the stain(s) cited in this report were developed and its performance characteristic determined by the Dermatopathology Laboratory at [facility], directed by Dr. Kenny Gordon. These tests need not be, and therefore are not, approved by the [place] Food and Drug Administration. The tests are used for clinical purposes. Billing Codes Specimen Charges Stain Charges 95630 92257 1 1 3 1:02 PM [facility] DERMATOPATHOLOGY LABORATORY Embedded Images 3 1:02 PM [facility] DERMATOPATHOLOGY LABORATORY Pathology/Cytology TISSUE SPECIMEN FROM SKIN / Unknown 08/31/2022 3:33 AM BROOCH MAKER NOVELTY 09/04/2022 6:04 AM BROOCH MAKER NOVELTY Miscellaneous samples (specimen) TISSUE SPECIMEN FROM SKIN / Unknown 08/31/2022 3:33 AM BROOCH MAKER NOVELTY 09/04/2022 6:04 AM BROOCH MAKER NOVELTY us Juan Antonio Álvarez MD LAB - PATHOLOGY/CYTOLOGY ORDER JUVENAL Final Result DERMATOPATHOLOGY LABORATORY [facility] - Department of Dermatology [facility] [address] [place] [address], [address] [phone] documented in this encounter Visit Diagnoses Not on filedocumented in this encounter
--- OUTSIDE RECORDS SUMMARY | 2025-05-24 16:59 | XMS_ITS | Encounter Summary ---
Author Organization [facility] Address [address] [place] [address] Care Team Providers Care Blanching Machine Operator Name Role Phone Sonny Moctezuma MD Primary Care Provider [phone] Encounter Details Date Type Department Care Team (Late st Contact Info) Description 09/06/2023 [employer] Message Enc [facility] - [place] [address] Sudha, [facility] Provider Foot Pain Social History Tobacco [...] Sex Assigned at Female 09/06/2023 8:03 AM SHIFT SUPERVISOR RN Legal Sex Female 11:47 PM CDT Gender Identity Female 09/06/2023 8:03 AM SHIFT SUPERVISOR RN Sexual Orientation Straight 09/06/2023 8: 03 AM SHIFT SUPERVISOR RN documented as of this encounter Plan of Treatment Not on file documented as of this encounter Visit Diagnoses Not on filedocumented in this encounter Care Teams Blanching Machine Operator Relationship Specialty Start Date End Date Sonny Moctezuma MD [address] [place] [id number] PCP - General FAMILY PRACTICE 6/27/23 documented as of this encounter
--- OUTSIDE RECORDS SUMMARY | 2025-05-24 16:59 | XMS_ITS | Clinical Summary ---
Author Organization [facility] Address [address] [place] [address] Care Team Providers Care Dye House Vat Worker Name Role Phone Unavailable Primary Care Provider Unavailabl e Source Comments [facility],non-owned Affiliates and Associated Physician Practices is amultiple site organization consisting of ambulatory clinics and hospital sitesin [place], [place], [place] and [place]. This disclosure is being madepursuant to the Care Everywhere program and may not contain all information available regarding this patient. 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
--- OUTSIDE RECORDS SUMMARY | 2025-05-24 16:59 | XMS_ITS | Clinical Summary ---
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 Sexual Orientation Straight 09/06/2023 8: 03 AM SIX SIGMA BLACK TRAINER Last Filed Vital Signs Vital Sign Reading [...] 11:20 AM CDT Height 165.1 cm (5' 5) 10/18/2023 11:2 0 AM CDT Body Mass Index 42.73 10/18/2023 11:20 AM CDT Plan of Treatment Health Maintenance Due Date Last Done Comments Cervical Cancer Screening Pap Smear (Age 30 to 64) Every 3 Years 1965 Colorectal Cancer Screening Colonoscopy (10 Years) 1965 Annual Physical 1968 Hepatitis C 10/10/1983 DTaP, Tdap and Td Vaccines (1 - Tdap) 1984 Cervical Cancer Screening Pap with HPV Testing (Age 30 to 64) Every 5 Years 10/10/1995 Cervical Cancer Screening with HPV 10/10/1995 Mammogram Screening 2005 Pneumococcal Vaccine: 50+ Years (1 of 1 - PCV) 10/10/2015 Zoster Vaccines (1 of 2) 10/10/2015 PHQ-2 (Physician [place]) 07/01/2024 10/18/2023 COVID-19 Vaccine ( season) 2025 06/17/2021, 10/15/2020, 09/24/2020 Influenza Adult (#1) 2025 04/04/2021, 04/07/2020, 04/15/2019, Additional history exists Hepatitis A Vaccines Aged Out No long er eligible based on patient's age to complete this topic Meningococcal B Vaccine Aged Out No l onger eligible based on patient's age to complete this topic Meningococcal Vaccine Aged Out No efraín deisy eligible based on patient's age to complete this topic RSV Immunizations Under 20 Months Aged Out No longer eligible based on patient's age to complete this topic Care Teams Eyedotter Relationship Specialty Start Date End Date Sonny Moctezuma MD [address] [place] [address] PCP - General FAMILY PRACTICE 12/25/22
--- OUTSIDE RECORDS SUMMARY | 2025-05-24 16:59 | XMS_ITS | Encounter Summary ---
Author Organization [facility] Address [address] [place] [address] Care Team Providers Care Data Warehouse Administrator Name Role Phone Unavailable Primary Care Provider Unavailabl e Encounter Details Date Type Department Care Team (Late st Contact Info) Description 06/06/2021 Lab Requisition [facility] [address] [id number] Juan Antonio Álvarez MD [address] [address] Social History Tobacco Use Types Packs/Day Years Used Date Smoking Tobacco: Never Assessed Comments Unknown Sex and Gender Information Value Date Recorded Sex Assigned at Not on file 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 Gender Identity Not on file Sexual Orientation Not on file documented as of this encounter Plan of Treatment Not on file documented as of this encounter Procedures Procedure Name Priority Date/Time Associated Diagnosis Comments DERMATOPATHOLOGY Routine 06/02/2021 12:0 0 AM EELER documented in this encounter Results * DERMATOPATHOLOGY (06/02/2021 12:00 AM EELER) Case Report Dermatopathology Report Case: [id number] Authorizing Provider: Juan Antonio Álvarez MD Collected: 06/02/2021 12:00 AM Ordering Location: [facility] Derm[facility] Lab Received: 06/06/2021 06:28 AM Pathologist: Josefina Harris MD Specimen: Skin, right ala 4:46 PM [facility] Final Diagnosis Specimen A. SKIN, right ala: COMPOUND MELANOCYTIC NEVUS (D22.39) 4:46 PM [facility] at [address] Clinical History Nevus R/O atypia. Path# [id number] 4:46 PM [facility] Gross Description Specimen A: Received is one formalin filled container labeled with the patient's name and designated right ala. The specimen consists of a shave biopsy measuring [id number]. Jar 0. 4:46 PM [facility] Microscopic Description Specimen A. SKIN, right ala: There are nests of melanocytes at the dermal-epidermal junction and within the dermis. 4:46 PM [facility] Disclaimer An external and internal positive and negative controls are appropriate for the histochemical, immunohistochemical and immunofluorescence stain(s) in this case (if any), except where stated explicitly. The performance characteristics of the stain(s) cited in this report were developed and its performance characteristic determined by the Dermatopathology Laboratory at [facility], directed by Dr. Kenny Gordon. These tests need not be, and therefore are not, approved by the [place] Food and Drug Administration. The tests are used for clinical purposes. Billing Codes Specimen Charges Stain Charges 58880 1 4:46 PM [facility] Embedded Images 4:46 PM [facility] Pathology/Cytolog y TISSUE SPECIMEN FROM SKIN / Unknown 06/02/2021 06/06/2021 6:28 AM EELER us Juan Antonio Álvarez MD LAB - PATHOLOGY/CYTOLOGY ORDER JUVENAL Final Result DERMATOPATHOLOGY LABORATORY [facility] - Department of Dermatology [address] [place] [address], [facility] [phone] documented in this encounter Visit Diagnoses Not on filedocumented in this encounter
--- OUTSIDE RECORDS SUMMARY | 2025-05-24 17:00 | XMS_ITS | Clinical Summary ---
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
== END 2025-05-24 14:19 | disposition home or self-care (01) ==
PROVIDERS: PCP Family Medicine; Visit Provider Obstetrics & Gynecology
DX: Z12.31 Encounter for screening mammogram for malignant neoplasm of breast (principal)
CPT/HCPCS: 77063; 77067